=== PATIENT | female | born 1990 | race Caucasian/White ===

== ENCOUNTER → 2017-12-21 | Outpatient (CLI) | payer OTHER ==
[~2017-12-21] MED LIST: ABL/5 PO; CLC100 PO; FLUO20CA35 PO; FRRS300 PO; LEVO50TA PO; LINA1CAP2 PO; MTR600X PO; OMEP20TA PO; OXYC-57 PO; PRENTAB26 PO; VENL75TA4 PO; WLL100 PO
--- NOTE | 2017-12-27 12:42 | EDITING REQUIRED CODING QUERY ---
DIAGNOSIS NEEDED To promote full compliance with coding requirements relating to patient care, physician participation is requested in all cases of assistant vice president uncertainty. Please assist us with the question(s) below: Coding Question: The patient received care in labor and delivery on 12/21/17 as noted within the record. Please document the diagnosis that is being addressed by the medication/treatment. Provider Response: DIAGNOSIS: No amniotic fluid leaking WEEKS OF GESTATION: 40 weeks Thank you for your assistance, Lina Royal - Veterinarian Helper
== END ==
LOC: C.LD 20:24 → C.OPB 20:24
PROVIDERS: ATTEND Obstetrics & Gynecology
DX: Z34.03 Encounter for supervision of normal first pregnancy, third trimester (principal)